=== PATIENT | female | born 1995 | race Caucasian/White ===

== ENCOUNTER 2020-05-14 06:15 | Inpatient (IN) | payer BC, OTHER ==
[2020-05-14] MEDS ORDERED: METHYLERGONOVINE 0.2 MG/ML 1 ML AMP IM PRN (06:33)
[2020-05-14] MEDS ORDERED: CARBOPROST TROMETHAMINE 250 MCG/ML 1 ML AMP IM PRN (06:33)
[2020-05-14] MEDS ORDERED: OXYTOCIN 10 UNIT/ML 1 ML VIAL IM PRN (06:33)
[2020-05-14] MEDS ORDERED: LIDOCAINE 0.5% (PF) 5 MG/ML (50 ML SDV) SQ PRN (06:33)
[2020-05-14] MEDS ORDERED: TERBUTALINE 1 MG/ML VIAL SQ PRN (06:33)
[2020-05-14 06:49] LABS: Basophils # (A) 0.1 k/uL (0-0.2); Basophils % (A) 0 %; Eosinophils # (A) 0.3 k/uL (0-0.7); Eosinophils % (A) 3 %; HCT 36.4 % (34.0-46.0); HGB 12.5 gm/dL (11.4-16.0); Lymphocytes # (A) 2.5 k/uL (1.0-4.8); Lymphocytes % (A) 22 %; MCHC 34.3 g/dL (31.0-37.0); MCV 93.4 fL (80.0-100.0); Mean Platelet Volume 7.9; Monocytes # (A) 0.6 k/uL (0-1.0); Monocytes % (A) 5 %; Neutrophils # (A) 7.6 k/uL (1.3-7.7); Neutrophils % (A) 68 %; Platelet Count 187 k/uL (150-450); RDW 13.5 % (11.5-15.5); WBC 11.2 k/uL (3.8-10.6)
--- NOTE | 2020-05-14 07:35 | P.HPOB ---
History of Present Illness H&P Date: 05/14/20 Chief Complaint: Here for induction of Labor This is a 24-year-old white female 1 para 0 EDC 05/14/2020 at 40 weeks gestation. Patient presents today for induction of labor with mild irregular uterine contractions. Fetus is been active throughout the . She denies fluid leakage or vaginal bleeding. Past medical history is significant for chronic abdominal pain, previously using marijuana. Past surgical history ear surgery, wisdom teeth extracted. Current medications vitamins daily, baby aspirin daily. ALLERGIES none known. Social history patient is , she is a nonsmoker of tobacco, she denies any other alcohol or drug use. history is significant for blood type O positive, rubella status immune. Urine culture, hepatitis B surface antigen, HIV testing, urine drug screen, gonorrhea and chlamydia cultures, group B strep cultures all negative. One-hour Glucola 111. On examination patient is 5 foot 6 inches, 175 pounds, blood pressure 116/76, vital signs are stable and patient is afebrile. The general physical exam is within normal limits. Extremities reveal no edema. Cervix is 3 cm dilated, 60- 70% effaced, -2 station, vertex presentation, soft, anterior. Artificial amniorrhexis reveals clear fluid. heart rate is consistent with reactive NST. Impression: 40 week intrauterine , here for induction of labor. All signs reassuring. Plan: Oxytocin per hospital protocol. Close maternal and surveillance. Analgesic options have been reviewed. Anticipate normal spontaneous vaginal d elivery. Review of Systems Constitutional: Reports as per HPI Past Medical History Past Medical History: No Reported History History of Any Multi-Drug Resistant Organisms: None Reported Past Surgical History: No Surgical Hx Reported Past Anesthesia/Blood Transfusion Reactions: No Reported Reaction Past Psychological History: No Psychological Hx Reported Smoking Status: Never smoker Past Drug Use History: None Reported Medications and Allergies Home Medications Medication Instructions Recorded Confirmed Type Aspirin 81 mg PO DAILY 05/14/20 05/14/20 History Pnv No.95/Ferrous Fum/Folic AC 1 each PO 05/14/20 History [ Multivitamin Tablet] Allergies Allergy/AdvReac Type Severity Reaction Status Date / Time No Known Allergies Allergy Verified 05/14/20 06:32 Exam Vital Signs Temp Pulse Resp BP Pulse Ox 05/14/20 06:31 98.2 F 103 H 16 116/76 99 Intake and Output 05/13/20 05/14/20 05/14/20 22:59 06:59 14:59 Other: Weight 79.379 kg See dictation under HPI please Results Result Diagrams: 05/14/20 06:30 Abnormal Lab Results - Last 24 Hours (Table) 05/14/20 Range/Units 06:30 WBC 11.2 H (3.8-10.6) k/uL Assessment and Plan Assessment: 40 week intrauterine , here for induction of labor. All signs reassuring. Plan: Continue close maternal and surveillance. Oxytocin per hospital protocol. Analgesic options reviewed. Anticipate normal spontaneous vaginal delivery. Time with Patient: Less than 30
[2020-05-14] MEDS: LACTATED RINGERS 1,000 ML IV SCH ×4 (07:49→22:00)
[2020-05-14] MEDS: OXYTOCIN 30 UNITS/500 ML NS 30 UNIT in SALINE 1 500ML.BAG IV SCH ×2 (07:50→22:45)
[2020-05-14] MEDS ORDERED: BUTORPHANOL 1 MG/ML 1 ML VIAL IV PRN (13:48)
[2020-05-14] MEDS ORDERED: ROPIVACAINE 5MG/ML 20ML VIAL ONE (16:00)
[2020-05-14] MEDS ORDERED: SODIUM CHLORIDE 0.9% 100 ML BAG ONE (16:00)
[2020-05-14] MEDS ORDERED: fentaNYL (PF) 50 MCG/ML 5 ML AMP ONE (16:00)
[2020-05-14] MEDS ORDERED: ROPIVACAINE 100 MG, fentaNYL (PF) 200 MCG in SODIUM CHLORIDE 0.9% 76 ML EPIDURAL ONE (17:31)
[2020-05-14] MEDS ORDERED: PENICILLIN G POTASSIUM 5,000,000 UNIT in DEXTROSE 5% IN WATER 100 ML IVPB STA ×2 (18:13)
[2020-05-14] MEDS ORDERED: ONDANSETRON 4 MG/2 ML VIAL ONE (20:59)
[2020-05-14] MEDS ORDERED: KETOROLAC 15 MG/ML 1 ML VIAL ONE (20:59)
[2020-05-14] MEDS ORDERED: MORPHINE SULFATE (PF) 0.3 MG/0.3 ML SYR ONE (20:59)
[2020-05-14] MEDS ORDERED: OXYTOCIN 10 UNIT/ML 1 ML VIAL ONE (20:59)
[2020-05-14] MEDS ORDERED: HYDROmorphone (PF) 1 MG/ML ONE (20:59)
[2020-05-14] MEDS ORDERED: diphenhydrAMINE 50 MG CAP PO PRN (21:47)
[2020-05-14] MEDS ORDERED: NALOXONE 0.4 MG/ML 1 ML VIAL IV PRN (21:47)
[2020-05-14] MEDS ORDERED: diphenhydrAMINE 25 MG CAP PO PRN (21:47)
[2020-05-14] MEDS ORDERED: diphenhydrAMINE 50 MG/ML 1 ML VIAL IVP PRN ×2 (21:47)
[2020-05-14] MEDS ORDERED: METOCLOPRAMIDE 5 MG/ML 2 ML VIAL IVP PRN (21:47)
[2020-05-14] MEDS ORDERED: SIMETHICONE 80 MG CHEWABLE PO PRN (21:47)
[2020-05-14] MEDS ORDERED: ZOLPIDEM 5 MG TAB PO PRN (21:47)
--- NOTE | 2020-05-14 21:48 | P.OP ---
Date of Procedure: 05/14/20 Preoperative Diagnosis: Or 8 week intrauterine , arrest of dilatation and descent Postoperative Diagnosis: Same, left occiput transverse arrest, nuchal cord 2, liveborn female Procedure(s) Performed: Primary low transverse section Anesthesia: epidural Surgeon: Shahida Herrera Vault Clerk #1: Clinton Stevens Estimated Blood Loss (ml): 600 IV fluids (ml): 800 Urine output (ml): 200 Pathology: none sent Condition: stable Disposition: PACU Operative Findings: Liveborn female , left occiput transverse arrest, nuchal cord 2, 3250 g, 7 lbs. 3 oz. Normal-appearing tubes and ovaries bilaterally. Description of Procedure: Patient presented for induction with favorable cervix. unremarkable, blood type O positive, group B strep cultures negative. Please see dictated history and physical for details. Artificial amniorrhexis revealed clear fluid. Oxytocin was started and titrated per hospital protocol. heart tones were reassuring throughout the first and second stages. Patient had arrest of dilatation and descent at 8 cm dilated, 70% effaced, -2 station. No cervical change was made for over 3 hours. The decision was made to proceed with primary low transverse section. Epidural that had been placed was topped off. She's placed in the dorsal supine position with left lateral uterine displacement. Holbrook catheter to direct drainage. Vaginal prep performed. 2 g of Ancef given, 5 million units of penicillin given approximately 3 hours prior to the start of our procedure. The appropriate timeout is performed to assure proper patient and procedural identification. Abdomen is prepped and draped in usual sterile fashion. Analgesia is checked and noted to be adequate. A low transverse skin incision is made in this is carried down through the subcutaneous tissue to the fascia. Fascia is isolated, scored, extended bilaterally with curved Lindsey scissors. Peritoneum is next identified and incised, there is no bowel or bladder involvement. Bladder blade is placed over the dome of the bladder. At all times the bladder is Well from the operative field to avoid bladder and/or ureteral injury. A low transverse uterine incision is made and carried down to the . It is extended bluntly. The infant's head is delivered in the left occiput transverse position. There is a large amount of Noted and a nuchal cord 2 was reduced. The patient is officially delivered of a liveborn female at 2110 hrs. Umbilical cord is doubly clamped and ligated, she is handed to waiting nurses for evaluation where scores of 8 and 9 at one and 5 minutes respectively are given. The placentas delivered manually, it is inspected and noted to be intact with trivascular cord. The uterus is then externalized and massaged. It is swept clean with a sterile sponge to avoid any retained products of conception. Uterus is closed in a two-step fashion, first layer running locking with 0 Vicryl, second layer imbricated with 0 Vicryl. Tubes and ovaries appear normal. Abdomen is suctioned with suction on guard and the uterus is placed back into the abdominal cavity. Bilateral gutters are inspected and cleaned. Holbrook is noted to be draining clear urine. The peritoneum was allowed close by secondary intention. The fascia is closed in a running stitch of 0 Vicryl with over ligation in the midline. Subcutaneous tissue is irrigated, clean and dry. It is reapproximated with 3-0 Vicryl in a running stitch. 4-0 undyed Monocryl is used for final skin closure. Steri-Strips and Mastisol are applied to the wound. Uterus is massaged. Total estimated blood loss 600 mL's. Total fluid replacement 800 mL's. Urine output 200 mL's. Patient is brought back to recovery room in very good condition with stable vital signs including blood pressure 120/64, pulse 80. weighs 3250 g or 7 lbs. 3 oz. Patient is allowed to begin the bonding experience in the LDR.
[2020-05-14] MEDS ORDERED: CITRIC ACID-SODIUM CITRATE 15 ML CUP PO ONE (22:07)
[2020-05-14] MEDS ORDERED: PENICILLIN G POTASSIUM 2,500,000 UNIT in DEXTROSE 5% IN WATER 100 ML IVPB SCH ×2 (22:30)
[2020-05-15] MEDS ORDERED: ACETAMINOPHEN IV (For NPO) 1,000 MG in EMPTY BAG 1 BAG IVPB ONE (00:30)
[2020-05-15] MEDS: KETOROLAC 15 MG/ML 1 ML VIAL IVP PRN ×3 (04:03→16:00)
[2020-05-15] MEDS: LACTATED RINGERS 1,000 ML IV SCH (06:22)
--- NOTE | 2020-05-15 07:52 | P.PN ---
Progress Note - Text Progress Note Date: 05/15/20 Postoperative day 1 status post section under Epidural anesthesia and Epidural Duramorph for postoperative analgesia.The patient is doing well, there is mild generalized skin itching. There are no other anesthesia related complications. The patient denies any paresthesia or weakness in the lower extremities. Further management as per the patient primary team.
[2020-05-15 08:06] LABS: Basophils % (A) 0 %; Eosinophils # (A) 0.1 k/uL (0-0.7); Eosinophils % (A) 1 %; HCT 29.3 % (34.0-46.0); HGB 10.2 gm/dL (11.4-16.0); Lymphocytes # (A) 1.4 k/uL (1.0-4.8); Lymphocytes % (A) 12 %; MCH 32.8 pg (25.0-35.0); MCHC 34.8 g/dL (31.0-37.0); MCV 94.2 fL (80.0-100.0); Mean Platelet Volume 7.9; Monocytes # (A) 0.5 k/uL (0-1.0); Monocytes % (A) 4 %; Neutrophils % (A) 82 %; Platelet Count 152 k/uL (150-450); RBC 3.11 m/uL (3.80-5.40); RDW 13.7 % (11.5-15.5); WBC 12.2 k/uL (3.8-10.6)
--- NOTE | 2020-05-15 08:08 | P.PN ---
Subjective Progress Note Date: 05/15/20 Principal diagnosis: Postoperative day #1 Slept well. Minimal pain. No complaints. Objective - Vital Signs Vital signs: Vital Signs Temp 98.4 F 05/15/20 04:00 Pulse 69 05/15/20 04:00 Resp 16 05/15/20 04:00 BP 113/69 05/15/20 04:00 Pulse Ox 96 05/14/20 23:45 Intake & Output 05/14/20 05/15/20 05/15/20 18:59 06:59 18:59 Intake Total 14.917 Output Total 1050 Balance -1035.083 Intake: Intake, IV Titration 14.917 Amount Oxytocin 30 Units/500 ml 14.917 Ns 30 unit In Saline 1 500ml.bag @ Per Protocol IV .Q0M [facility] Rx#:[id number] Output: Urine 1050 Uretheral (Holbrook) 350 Other: # Voids 3 - Constitutional General appearance: Present: average body habitus, cooperative - EENT Eyes: Present: PERRLA ENT: Present: hearing grossly normal - Neck Neck: Present: normal ROM - Respiratory Respiratory: bilateral: CTA - Cardiovascular Rhythm: regular - Gastrointestinal Gastrointestinal Comment(s): Incision clean and dry, intact, Steri-Strips applied. Fundus firm, midline, symmetric, 18 week size. Active bowel sounds. - Integumentary Integumentary: Present: normal - Neurologic Neurologic: Present: CNII-XII intact - Musculoskeletal Musculoskeletal: Present: gait normal, strength equal bilaterally - Psychiatric Psychiatric: Present: A&O x's 3, appropriate affect, intact judgment & insight - Labs CBC & Chem 7: 05/15/20 07:39 Labs: Abnormal Lab Results - Last 24 Hours (Table) 05/15/20 Range/Units 07:39 WBC 12.2 H (3.8-10.6) k/uL RBC 3.11 L (3.80-5.40) m/uL Hgb 10.2 L (11.4-16.0) gm/dL Hct 29.3 L (34.0-46.0) % Neutrophils # 10.0 H (1.3-7.7) k/uL Assessment and Plan Assessment: Doing well postoperative day #1 Plan: Advance diet and activity. DC IV. Continue postoperative care. Likely disc harge home tomorrow. Time with Patient: Less than 30
[2020-05-15] MEDS: SENNOSIDES-DOCUSATE SODIUM 1 EACH TAB PO SCH ×2 (09:08→21:53)
[2020-05-15] MEDS: ACETAMINOPHEN TAB 325 MG TAB PO PRN ×2 (09:10→18:13)
[2020-05-15] MEDS: HYDROcodone/APAP 5-325MG 1 EACH TAB PO PRN (18:12)
[2020-05-15] MEDS: IBUPROFEN 600 MG TAB PO PRN (21:53)
[2020-05-16] MEDS: HYDROcodone/APAP 5-325MG 1 EACH TAB PO PRN ×4 (00:47→20:06)
[2020-05-16] MEDS: IBUPROFEN 600 MG TAB PO PRN ×3 (04:41→18:20)
--- NOTE | 2020-05-16 08:56 | P.DS ---
Providers Date of admission: 05/14/20 06:15 Expected date of discharge: 05/16/20 Attending physician: Shahida Herrera Primary care physician: Stated None Hospital Course: This is a 24-year-old white female 1 para 0 EDC 05/14/2020 who presented at 40 weeks gestation for induction of labor with favorable cervix. Patient had a reasonably unremarkable , blood type O positive, rubella status immune, group B strep cultures negative. Please see dictated history and physical for details. She does have a history of chronic abdominal pain, etiology unknown. Patient had arrest of dilatation and descent and underwent a primary low transverse section giving to a liveborn female with scores of 8 and 9 at one and 5 minutes respectively. Infant was in the l left occiput transverse position and had a nuchal cord 2. She did well intraoperatively, please see dictated operative note. weighed 3250 g or 7 lbs. 3 oz. This morning the patient is doing well. She is voiding, ambulating, passing flatus without difficulty. Vital signs are stable and she is afebrile. She is utilizing [place] Peter 5 mg along with Motrin as needed for pain. Her incision is clean and dry, intact, Steri-Strips applied. Fundus is firm, midline, symmetric, 18 week size. Extremities are negative for edema. Patient is judged to be in good condition for discharge home. I have given her prescription for a small number of [place] Peter 5 mg to be used as needed along with exercise strength Tylenol. She will alternate this with ibuprofen, 600 mg every 6 hours as needed. I have reminded her no intercourse, tampons or douching. She will continue taking her vitamin daily, and has a prescription for a double electric breast pump. I've asked her to call me with any fevers shakes or chills, foul smelling or copious lochia, with the passage of large blood clots, with any pain not alleviated by the above regime, or indeed with any concerns. Assessment: Doing well postoperative day number two Patient Condition at Discharge: Good Plan - Discharge Summary Discharge Rx Participant: Yes New Discharge Prescriptions: No Action Aspirin 81 mg PO DAILY Pnv No.95/Ferrous Fum/Folic AC [ Multivitamin Tablet] 1 each PO Discharge Medication List Aspirin 81 mg PO DAILY 05/14/20 [History] Pnv No.95/Ferrous Fum/Folic AC [ Multivitamin Tablet] 1 each PO 05/14/20 [History] Follow up Appointment(s)/Referral(s): Shahida Herrera MD [STAFF PHYSICIAN] - 2 Weeks
[2020-05-16] MEDS: SENNOSIDES-DOCUSATE SODIUM 1 EACH TAB PO SCH ×2 (13:52→20:07)
[2020-05-16 18:42] VITALS: BP 116/74; PULSE 91; RESP 18; TEMP 98.1
== END 2020-05-16 22:05 | disposition home or self-care (01) | DRG 788 ==
LOC: 4FBP 06:15
PROVIDERS: ADMIT Obstetrics & Gynecology; ATTEND Obstetrics & Gynecology
PROC: 3E033VJ Introduction of Other Hormone into Peripheral Vein, Percutaneous Approach (ICD-10-PCS; 2020-05-14)
PROC: 10D00Z1 Extraction of Products of Conception, Low, Open Approach (ICD-10-PCS; principal; 2020-05-14 21:00)
DX: O62.0 Primary inadequate contractions (principal); O69.81X0 Labor and delivery complicated by cord around neck, without compression, not applicable or unspecified; Z37.0 Single live birth; Z3A.40 40 weeks gestation of pregnancy; Z79.82 Long term (current) use of aspirin; G89.29 Other chronic pain; R10.9 Unspecified abdominal pain
CPT/HCPCS: 85025; 86850; 86900; 86901